=== PATIENT | female | born 1975 | race African-American/Black ===

== ENCOUNTER 2018-08-19 17:21 | Emergency (ER) | payer OTHER ==
[~2018-08-19] VITALS: Ht 180.3 cm; Wt 118.2 kg
[~2018-08-19 17:21] MED LIST: IRON18TA PO; PREN-155 PO
[2018-08-19 19:25] LABS: APPEARANCE,URINE CLOUDY (CLEAR); BILIRUBIN,URINE NEGATIVE (NEGATIVE); GLUCOSE, URINE (UA) NEGATIVE (NEGATIVE); KETONES,URINE NEGATIVE (NEGATIVE); LEUKOCYTE ESTERASE ,URINE SMALL (NEGATIVE); NITRATE,URINE POSITIVE (NEGATIVE); OCCULT BLOOD,URINE LARGE (NEGATIVE); PROTEIN,URINE NEGATIVE (NEGATIVE); UROBILINOGEN,URINE 0.2 mg/dL (<=1.0)
[2018-08-19 19:30] LABS: BASOPHILS % (AUTO) 0.5 % (0.0-2.0); HEMATOCRIT 33.9 % (36-46); HEMOGLOBIN 10.6 g/dL (12.0-16.0); LYMPHOCYTES # (AUTO) 2.2 K/uL (1.0-4.8); LYMPHOCYTES % (AUTO) 37.8 % (22.0-44.0); MEAN CORPUSCULAR HEMOGLOBIN 22.8 pg (26.0-34.0); MEAN CORPUSCULAR HGB CONC 31.4 G/dL (31.0-37.0); MEAN CORPUSCULAR VOLUME 73 fL (80-100); MONOCYTES # (AUTO) 0.7 K/uL (0.1-1.0); MONOCYTES % (AUTO) 11.6 % (2.0-9.0); NEUTROPHILS # (AUTO) 2.8 K/uL (1.8-7.7); NEUTROPHILS % (AUTO) 48.1 % (40.0-70.0); PLATELET COUNT (AUTO) 252 K/uL (150-450); RED BLOOD CELL COUNT(AUTO) 4.67 MIL/uL (4.00-5.20); RED CELL DISTRIBUTION WIDTH 15.6 % (11.5-14.5)
[2018-08-19] MEDS ORDERED: SODIUM CHLORIDE 0.9% 1,000 ML IV ONE (19:30)
[2018-08-19 19:40] LABS: ANION GAP 8 mmol/L (8-16); CALCIUM, TOTAL 8.6 mg/dL (8.8-10.5); CARBON DIOXIDE 27 mmol/L (22-29); CHLORIDE 104 mmol/L (98-107); CREATININE 0.77 mg/dL (0.60-1.30); GLOMERULAR FILTR. RATE CALC > 60 mL/min (>60); GLUCOSE,RANDOM 90 mg/dL (70-110); POTASSIUM 3.8 mmol/L (3.5-5.1); SODIUM SERUM 139 mmol/L (136-145); UREA NITROGEN, BLOOD 12 mg/dL (7-18)
[2018-08-19 20:05] LABS: ALANINE AMINOTRANSFERASE 16 U/L (12-78); ALBUMIN 3.3 g/dL (3.4-5.0); ALKALINE PHOSPHATASE 89 U/L (46-116); ASPARTATE AMINOTRANSFERASE 16 U/L (15-37); BILIRUBIN,TOTAL 0.2 mg/dL (0.1-1.0); CREATINE KINASE, TOTAL ONLY 91 U/L (26-192); HCG,QUANTITATIVE < 1 mIU/mL (0-6); TOTAL PROTEIN, SERUM 7.8 g/dL (6.4-8.2)
[2018-08-19 20:18] LABS: BACTERIA,URINE Many /HPF (None Seen); RBC,URINE >100 /HPF (0-2)
[2018-08-19 20:19] VITALS: BP 131/70
[2018-08-19 20:19] LABS: SQUAMOUS EPITHELIAL CELL,UR Moderate /LPF (None Seen)
== END 2018-08-19 21:09 | disposition home or self-care (01) ==
LOC: EMS 17:22
DX: N39.0 Urinary tract infection, site not specified (principal); R42 Dizziness and giddiness; F32.9 Major depressive disorder, single episode, unspecified; F17.210 Nicotine dependence, cigarettes, uncomplicated; Z88.8 Allergy status to other drugs, medicaments and biological substances; Z88.0 Allergy status to penicillin
CPT/HCPCS: 36415; 80053; 81001; 82550; 84484; 84702; 85025; 87077; 87086; 87186; 93005; 96360; 99285; J7030

== ENCOUNTER 2018-09-20 08:37 | Emergency (ER) | payer SELFPAY ==
[~2018-09-20] VITALS: Ht 175.3 cm; Wt 118.2 kg
[~2018-09-20 08:37] MED LIST changes: -PREN-155 PO
[2018-09-20 09:53] LABS: APPEARANCE,URINE CLEAR (CLEAR); BILIRUBIN,URINE NEGATIVE (NEGATIVE); GLUCOSE, URINE (UA) NEGATIVE (NEGATIVE); KETONES,URINE NEGATIVE (NEGATIVE); LEUKOCYTE ESTERASE ,URINE NEGATIVE (NEGATIVE); NITRATE,URINE NEGATIVE (NEGATIVE); OCCULT BLOOD,URINE MODERATE (NEGATIVE); PROTEIN,URINE NEGATIVE (NEGATIVE); UROBILINOGEN,URINE 0.2 mg/dL (<=1.0)
[2018-09-20 10:17] LABS: BACTERIA,URINE None Seen /HPF (None Seen); SQUAMOUS EPITHELIAL CELL,UR Few /LPF (None Seen); WBC,URINE None Seen /HPF (0-5)
[2018-09-20] MEDS ORDERED: KETOROLAC TROMETHAMINE 60 MG/2 ML VIAL IM ONE (11:15)
[2018-09-20 11:50] VITALS: BP 132/72
== END 2018-09-20 11:59 | disposition home or self-care (01) ==
LOC: EMS 08:38
DX: R10.31 Right lower quadrant pain (principal); F32.9 Major depressive disorder, single episode, unspecified; F17.210 Nicotine dependence, cigarettes, uncomplicated; Z88.8 Allergy status to other drugs, medicaments and biological substances; Z88.0 Allergy status to penicillin
CPT/HCPCS: 81001; 96372; 99283; J1885

== ENCOUNTER 2020-12-02 18:52 | Emergency (ER) | payer OTHER ==
[~2020-12-02] VITALS: Ht 175.3 cm; Wt 113.6 kg
[2020-12-02 20:42] VITALS: BP 162/104
== END 2020-12-02 21:00 | disposition home or self-care (01) ==
LOC: EMS 18:53
DX: R42 Dizziness and giddiness (principal)
CPT/HCPCS: 70450; 99284

== ENCOUNTER 2022-08-06 10:20 | Emergency (ER) | payer OTHER ==
[~2022-08-06] VITALS: Ht 175.3 cm; Wt 100.0 kg
[2022-08-06] MEDS ORDERED: FERR-72 PO (10:26)
[2022-08-06] MEDS ORDERED: METO50 PO (10:26)
[2022-08-06] MEDS ORDERED: DEXAMETHASONE SOD PHOS 4 MG/ML 5 ML VIAL IM ONE (11:15)
[2022-08-06] MEDS ORDERED: DIPH25CA53 PO (11:54)
[2022-08-06] MEDS ORDERED: ACET-2080 PO (11:54)
[2022-08-06] MEDS ORDERED: PRED-554 PO (11:54)
[2022-08-06] MEDS ORDERED: OMEP20 PO (11:54)
[2022-08-06] MEDS ORDERED: HYDR30CR39 TP (11:59)
[2022-08-06 12:08] VITALS: BP 140/98
== END 2022-08-06 12:28 | disposition home or self-care (01) ==
LOC: EMS 10:23
DX: L25.9 Unspecified contact dermatitis, unspecified cause (principal); F32.A Depression, unspecified; I10 Essential (primary) hypertension; F17.210 Nicotine dependence, cigarettes, uncomplicated; F12.90 Cannabis use, unspecified, uncomplicated; Z98.890 Other specified postprocedural states; Z88.0 Allergy status to penicillin; Z88.8 Allergy status to other drugs, medicaments and biological substances
CPT/HCPCS: 99283; 96372; J1100

== ENCOUNTER 2023-03-23 09:35 | Emergency (ER) | payer OTHER ==
[~2023-03-23] VITALS: Ht 175.3 cm; Wt 100.0 kg
[~2023-03-23 09:35] MED LIST changes: +ACET-2080 PO; +DIPH25CA53 PO; +FERR-72 PO; +HYDR30CR39 TP; -IRON18TA PO; +METO50 PO; +OMEP20 PO; +PRED-554 PO
[2023-03-23 10:42] VITALS: TEMP 98
[2023-03-23] MEDS ORDERED: ONDANSETRON HCL 4 MG/2 ML VIAL IM ONE (11:30)
[2023-03-23] MEDS ORDERED: KETOROLAC TROMETHAMINE 60 MG/2 ML VIAL IM ONE (11:30)
[2023-03-23] MEDS ORDERED: HYDROmorphone HCL 2 MG/ML SYRINGE IM ONE (11:30)
[2023-03-23 11:53] LABS: BASOPHILS % (AUTO) 0.4 % (0.0-2.0); EOSINOPHILS % (AUTO) 2.2 % (1.0-6.0); HEMATOCRIT 37.4 % (36-46); HEMOGLOBIN 12.2 g/dL (12.0-16.0); LYMPHOCYTES # (AUTO) 2.2 K/uL (1.0-4.8); LYMPHOCYTES % (AUTO) 46.7 % (22.0-44.0); MEAN CORPUSCULAR HEMOGLOBIN 25.3 pg (26.0-34.0); MEAN CORPUSCULAR HGB CONC 32.5 G/dL (31.0-37.0); MEAN CORPUSCULAR VOLUME 78 fL (80-100); MONOCYTES # (AUTO) 0.4 K/uL (0.1-1.0); MONOCYTES % (AUTO) 9.5 % (2.0-9.0); NEUTROPHILS # (AUTO) 1.9 K/uL (1.8-7.7); NEUTROPHILS % (AUTO) 41.2 % (40.0-70.0); PLATELET COUNT (AUTO) 261 K/uL (150-450); RED BLOOD CELL COUNT(AUTO) 4.81 MIL/uL (4.00-5.20); WHITE BLOOD COUNT (AUTO) 4.6 K/uL (4.5-11.0)
[2023-03-23 12:12] LABS: ANION GAP 10 mmol/L (8-16); CARBON DIOXIDE 28 mmol/L (22-29); CHLORIDE 101 mmol/L (98-107); CREATININE 0.61 mg/dL (0.60-1.30); GLOMERULAR FILTR. RATE CALC > 60 mL/min (>60); GLUCOSE,RANDOM 95 mg/dL (70-110); POTASSIUM 3.5 mmol/L (3.5-5.1); SODIUM SERUM 139 mmol/L (136-145); TROPONIN I-HIGH SENSITIVITY 4 ng/L (<51); UREA NITROGEN, BLOOD 10 mg/dL (7-18)
[2023-03-23 12:19] LABS: ALANINE AMINOTRANSFERASE 22 U/L (12-78); ALBUMIN 3.6 g/dL (3.4-5.0); ALKALINE PHOSPHATASE 89 U/L (46-116); ASPARTATE AMINOTRANSFERASE 21 U/L (15-37); BILIRUBIN,TOTAL 0.4 mg/dL (0.1-1.0)
[2023-03-23 12:28] LABS: RBC MORPHOLOGY COMMENT ABNORMAL RBC MORPH
[2023-03-23] MEDS ORDERED: METHOCARBAMOL 500 MG TABLET PO ONE (13:15)
[2023-03-23] MEDS ORDERED: HYDROCODONE/ACETAMINOPHEN 5-325 MG TABLET PO ONE (13:15)
[2023-03-23] MEDS ORDERED: IBUP-1554 PO (14:44)
[2023-03-23] MEDS ORDERED: POLY238P PO (14:44)
[2023-03-23] MEDS ORDERED: HYDR-4723 PO (14:44)
[2023-03-23] MEDS ORDERED: METH-659 PO (14:44)
[2023-03-23 15:07] VITALS: BP 133/72; PULSE 82; RESP 18
[2023-03-24] MEDS ORDERED: HYDR-4400 PO ×2 (09:25→13:13)
[2023-03-24] MEDS ORDERED: IBUP-1554 PO (13:12)
[2023-03-24] MEDS ORDERED: METH-659 PO (13:12)
[2023-03-24] MEDS ORDERED: POLY238P PO (13:12)
== END 2023-03-23 15:10 | disposition home or self-care (01) ==
LOC: EMS 09:38
DX: M54.42 Lumbago with sciatica, left side (principal); F32.A Depression, unspecified; I10 Essential (primary) hypertension; F17.210 Nicotine dependence, cigarettes, uncomplicated; F12.90 Cannabis use, unspecified, uncomplicated; Z98.890 Other specified postprocedural states; Z88.0 Allergy status to penicillin; Z88.8 Allergy status to other drugs, medicaments and biological substances
CPT/HCPCS: 99284; 80053; 84484; 84703; 85025; 85379; 72100; 96372; J1170; J1885; J2405

== ENCOUNTER 2024-01-26 12:47 | Emergency (ER) | payer OTHER ==
[~2024-01-26] VITALS: Ht 175.3 cm; Wt 124.5 kg
[~2024-01-26 12:47] MED LIST changes: +HYDR-4400 PO; +IBUP-1554 PO; +METH-659 PO; +POLY238P PO
[2024-01-26 12:52] VITALS: TEMP 97.9
[2024-01-26] MEDS: EPINEPHrine 1:1,000 [1 MG/ML] VIAL IM ONE (13:41)
[2024-01-26] MEDS: DiphenhydrAMINE HCL 50 MG/ML VIAL IVP ONE (13:42)
[2024-01-26] MEDS: MethylPREDNISolone SOD SUCC 125 MG/2 ML VIAL IVP ONE (13:42)
[2024-01-26] MEDS: FAMOTIDINE 20 MG/2 ML VIAL IVP ONE (13:42)
[2024-01-26] MEDS ORDERED: EPIN0.3P3 IM (13:47)
[2024-01-26] MEDS ORDERED: DIPH-1243 PO (13:47)
[2024-01-26] MEDS ORDERED: PRED-554 PO (13:47)
[2024-01-26 14:21] LABS: BASOPHILS % (AUTO) 0.3 % (0.0-2.0); EOSINOPHILS % (AUTO) 4.6 % (1.0-6.0); HEMATOCRIT 34.7 % (36-46); HEMOGLOBIN 10.9 g/dL (12.0-16.0); LYMPHOCYTES % (AUTO) 37.2 % (22.0-44.0); MEAN CORPUSCULAR HEMOGLOBIN 23.4 pg (26.0-34.0); MEAN CORPUSCULAR HGB CONC 31.4 G/dL (31.0-37.0); MEAN CORPUSCULAR VOLUME 75 fL (80-100); MONOCYTES # (AUTO) 0.7 K/uL (0.1-1.0); MONOCYTES % (AUTO) 8.7 % (2.0-9.0); NEUTROPHILS # (AUTO) 3.9 K/uL (1.8-7.7); NEUTROPHILS % (AUTO) 49.2 % (40.0-70.0); PLATELET COUNT (AUTO) 281 K/uL (150-450); RED BLOOD CELL COUNT(AUTO) 4.66 MIL/uL (4.00-5.20); RED CELL DISTRIBUTION WIDTH 14.9 % (11.5-14.5)
[2024-01-26 15:07] LABS: ANION GAP 8 mmol/L (8-16); CALCIUM, TOTAL 8.7 mg/dL (8.8-10.5); CARBON DIOXIDE 28 mmol/L (22-29); CHLORIDE 103 mmol/L (98-107); CREATININE 0.68 mg/dL (0.60-1.30); GLOMERULAR FILTR. RATE CALC > 60 mL/min (>60); GLUCOSE,RANDOM 91 mg/dL (70-110); POTASSIUM 3.3 mmol/L (3.5-5.1); RBC MORPHOLOGY COMMENT ABNORMAL RBC MORPH; SODIUM SERUM 139 mmol/L (136-145); UREA NITROGEN, BLOOD 11 mg/dL (7-18)
[2024-01-26 16:04] VITALS: BP 125/82; PULSE 82; RESP 16; O2SAT 99
== END 2024-01-26 16:08 | disposition home or self-care (01) ==
LOC: EMS 12:47
DX: T78.2XXA Anaphylactic shock, unspecified, initial encounter (principal); F32.A Depression, unspecified; I10 Essential (primary) hypertension; F12.90 Cannabis use, unspecified, uncomplicated; F17.210 Nicotine dependence, cigarettes, uncomplicated; Z88.0 Allergy status to penicillin; Z98.890 Other specified postprocedural states
CPT/HCPCS: 99291; 96374; 96375; 80048; 84703; 85025; 36415; 96372; J1200; J0171; J3490; J2919

== ENCOUNTER 2024-02-24 16:51 | Emergency (ER) | payer OTHER ==
[~2024-02-24] VITALS: Ht 175.3 cm; Wt 124.0 kg
[~2024-02-24 16:51] MED LIST changes: +DIPH-1243 PO; -DIPH25CA53 PO; +EPIN0.3P3 IM; -HYDR-4400 PO; -HYDR30CR39 TP; -IBUP-1554 PO; -METH-659 PO; -OMEP20 PO; -POLY238P PO
[2024-02-24 16:53] VITALS: TEMP 98.3
[2024-02-24 18:41] LABS: BASOPHILS % (AUTO) 0.4 % (0.0-2.0); EOSINOPHILS % (AUTO) 1.8 % (1.0-6.0); HEMATOCRIT 34.1 % (36-46); HEMOGLOBIN 10.7 g/dL (12.0-16.0); LYMPHOCYTES # (AUTO) 2.4 K/uL (1.0-4.8); LYMPHOCYTES % (AUTO) 40.3 % (22.0-44.0); MEAN CORPUSCULAR HEMOGLOBIN 23.6 pg (26.0-34.0); MEAN CORPUSCULAR HGB CONC 31.3 G/dL (31.0-37.0); MEAN CORPUSCULAR VOLUME 75 fL (80-100); MONOCYTES # (AUTO) 0.6 K/uL (0.1-1.0); MONOCYTES % (AUTO) 10.6 % (2.0-9.0); NEUTROPHILS # (AUTO) 2.9 K/uL (1.8-7.7); NEUTROPHILS % (AUTO) 46.9 % (40.0-70.0); PLATELET COUNT (AUTO) 265 K/uL (150-450); RED BLOOD CELL COUNT(AUTO) 4.53 MIL/uL (4.00-5.20); RED CELL DISTRIBUTION WIDTH 15.5 % (11.5-14.5); WHITE BLOOD COUNT (AUTO) 6.1 K/uL (4.5-11.0)
[2024-02-24 18:49] LABS: ANION GAP 4 mmol/L (8-16); CALCIUM, TOTAL 8.8 mg/dL (8.8-10.5); CARBON DIOXIDE 28 mmol/L (22-29); CHLORIDE 101 mmol/L (98-107); CREATININE 0.86 mg/dL (0.60-1.30); GLOMERULAR FILTR. RATE CALC > 60 mL/min (>60); GLUCOSE,RANDOM 101 mg/dL (70-110); POTASSIUM 3.8 mmol/L (3.5-5.1); SODIUM SERUM 133 mmol/L (136-145); UREA NITROGEN, BLOOD 10 mg/dL (7-18)
[2024-02-24 18:57] LABS: TROPONIN I-HIGH SENSITIVITY 5 ng/L (<51)
[2024-02-24 18:58] LABS: RBC MORPHOLOGY COMMENT ABNORMAL RBC MORPH
[2024-02-24 19:05] LABS: B-TYPE NATRIURETIC PEPTIDE 46 pg/mL (0-100)
[2024-02-24 19:06] VITALS: BP 146/94; PULSE 72; RESP 18; O2SAT 98
[2024-02-24 19:07] LABS: APPEARANCE,URINE HAZY (CLEAR); BILIRUBIN,URINE NEGATIVE (NEGATIVE); COLOR,URINE LIGHT YELLOW (YELLOW); GLUCOSE, URINE (UA) NEGATIVE (NEGATIVE); KETONES,URINE NEGATIVE (NEGATIVE); LEUKOCYTE ESTERASE ,URINE SMALL (NEGATIVE); NITRATE,URINE POSITIVE (NEGATIVE); OCCULT BLOOD,URINE NEGATIVE (NEGATIVE); PH,URINE 7.5 (5.0-8.0); PH,URINE DRUG SCREEN 7.5 (5.0-8.0); PROTEIN,URINE TRACE mg/dL (NEGATIVE); SPECIFIC GRAVITIY, URINE 1.024 (1.003-1.030); UROBILINOGEN,URINE <=1.0 mg/dL (<=1.0)
[2024-02-24 19:13] LABS: ALCOHOL, URINE DRUG SCREEN NEGATIVE (NEGATIVE); AMPHET/METH SCREEN,URINE NEGATIVE (NEGATIVE); BARBITURATE SCREEN, URINE NEGATIVE (NEGATIVE); BENZODIAZEPINES SCREEN,URINE NEGATIVE (NEGATIVE); CANNABINOID SCREEN,URINE POSITIVE (NEGATIVE); COCAINE SCREEN,URINE NEGATIVE (NEGATIVE); METHADONE SCREEN, URINE NEGATIVE (NEGATIVE); OPIATE SCREEN,URINE NEGATIVE (NEGATIVE); PHENCYCLIDINE SCREEN,URINE NEGATIVE (NEGATIVE)
[2024-02-24] MEDS: ONDANSETRON 4 MG TABLET PO ONE (19:24)
[2024-02-24 19:34] LABS: BACTERIA,URINE Moderate /HPF (None Seen); RBC,URINE None Seen /HPF (0-2); SQUAMOUS EPITHELIAL CELL,UR Rare /LPF (None Seen)
== END 2024-02-24 20:48 | disposition home or self-care (01) ==
LOC: EMS 16:51
DX: T59.811A Toxic effect of smoke, accidental (unintentional), initial encounter (principal); R42 Dizziness and giddiness; R53.1 Weakness; F17.210 Nicotine dependence, cigarettes, uncomplicated; F12.90 Cannabis use, unspecified, uncomplicated; I10 Essential (primary) hypertension; F41.9 Anxiety disorder, unspecified; Z88.0 Allergy status to penicillin; Z79.52 Long term (current) use of systemic steroids; Z87.440 Personal history of urinary (tract) infections; Y92.89 Other specified places as the place of occurrence of the external cause
CPT/HCPCS: 99285; 71045; 80048; 81001; 83880; 84484; 85025; 87077; 87086; 87186; 36415; 93005; 80307; Q0162

== ENCOUNTER 2025-01-24 09:03 | Emergency (ER) | payer MEDICAID, OTHER ==
[~2025-01-24] VITALS: Ht 175.3 cm; Wt 120.5 kg
[2025-01-24 09:05] VITALS: BP 139/95; PULSE 78; RESP 18; TEMP 98.1; O2SAT 100
[2025-01-24] MEDS: ACETAMINOPHEN 500 MG TABLET PO ONE (11:34)
[2025-01-24] MEDS: IBUPROFEN 600 MG TABLET PO ONE (11:34)
[2025-01-24] MEDS ORDERED: IBUP-1554 PO (12:16)
[2025-01-24] MEDS ORDERED: METH-659 PO (12:16)
[2025-01-24] MEDS ORDERED: ACET-66 PO (12:16)
== END 2025-01-24 12:24 | disposition home or self-care (01) ==
LOC: EMS 09:03
DX: M25.561 Pain in right knee (principal); M19.90 Unspecified osteoarthritis, unspecified site; F32.A Depression, unspecified; F12.90 Cannabis use, unspecified, uncomplicated; I10 Essential (primary) hypertension; F17.210 Nicotine dependence, cigarettes, uncomplicated; Z79.52 Long term (current) use of systemic steroids; Z79.899 Other long term (current) drug therapy; Z88.0 Allergy status to penicillin
CPT/HCPCS: 29505; 99284; 73562-TC; Z7502; Z7610